=== PATIENT | male | born 1975 | race Two or more races ===

== ENCOUNTER 2022-12-09 17:17 | Emergency (ER) | payer OTHER ==
[2022-12-09 17:48] VITALS: BP 128/79; PULSE 65; RESP 14; TEMP 98; BMI 28.1
[2022-12-09] MEDS ORDERED: SODIUM CHLORIDE 0.9% 500 ML INFUS.BAG IV ONE (19:04)
[2022-12-09] MEDS ORDERED: MECLIZINE HCL 25 MG TABLET (FP) PO ONE (19:04)
[2022-12-09] MEDS ORDERED: MECLIZINE HCL 25 MG TABLET (FP) ONE ×2 (19:50→20:02)
[2022-12-09 20:16] LABS: BASO % 0.6 % (0-2.0); EOS % 1.3 % (0-4.5); HEMATOCRIT 39.4 % (35.4-49); HEMOGLOBIN 13.5 GM/dL (11.7-16.9); MCH 30.9 pg (25.7-33.7); MCHC 34.3 g/dl (32.0-35.9); MEAN PLT VOLUME 8.8 fl (7.5-11.1); MONO % 7.4 % (3.8-10.2); NEUT % 71.7 % (42.8-82.8); PLATELET COUNT 231 10^3/uL (134-434); RBC 4.38 M/mm3 (4.00-5.60); RDW 13.2 % (11.9-15.9); WHITE BLOOD COUNT 9.2 K/mm3 (4.0-10.0)
[2022-12-09 20:57] LABS: BLOOD UREA NITROGEN 18.9 mg/dL (7-18)
[2022-12-09 21:00] LABS: CREATININE 0.9 mg/dL (0.55-1.3)
[2022-12-09] MEDS ORDERED: ACETAMINOPHEN 1000 MG/100 ML BAG IVPB ONE (21:10)
[2022-12-09] MEDS ORDERED: ACETAMINOPHEN INJECTION 100 ML IVPB ONE (21:11)
== END 2022-12-09 23:23 | disposition home or self-care (01) ==
LOC: JER 17:17
PROC: 3E033NZ Introduction of Analgesics, Hypnotics, Sedatives into Peripheral Vein, Percutaneous Approach (ICD-10-PCS; principal; 2022-12-09)
DX: R42 Dizziness and giddiness (principal); R51.9 Headache, unspecified; R11.0 Nausea; H53.71 Glare sensitivity; G43.909 Migraine, unspecified, not intractable, without status migrainosus
CPT/HCPCS: 36415; 70450-TC; 80048; 85025; 93005; 93010; 99285-25